=== PATIENT | female | born 1955 | race Caucasian/White ===

== ENCOUNTER → 2018-01-03 | Outpatient (CLI) | payer OTHER ==
[~2018-01-03] MED LIST: ALPR0.5T7 PO; ASPI81CH43 PO; COLE3.75 PO; GLIP-116 PO; HYDR-4683 PO; LEVO500T21 PO; MET25T PO; METF-370 PO; PRAS10TA8 PO
== END | disposition home or self-care (01) ==
LOC: LAB 15:58
PROVIDERS: ATTEND Internal Medicine
DX: E11.65 Type 2 diabetes mellitus with hyperglycemia (principal); I11.0 Hypertensive heart disease with heart failure; I50.9 Heart failure, unspecified; E78.5 Hyperlipidemia, unspecified; Z79.4 Long term (current) use of insulin
CPT/HCPCS: 82043

== ENCOUNTER → 2018-09-23 | Outpatient (CLI) | payer MEDICARE, OTHER ==
[~2018-09-23] MED LIST changes: +AZIL40TA2 PO; +CHOL20007 PO; +HYDR-531 PO; +INSLANTI SC
[2018-09-23 09:35] VITALS: BP 143/60
[2018-09-23 09:55] VITALS: BP 124/59
--- NOTE | 2018-09-23 09:55 | NUR ---
Pre-Op Discharge Summary: See e-MAR for any medications given for this visit. Pre-op orders received and carried out per MD of EKG, LABS and chest xrays. Patient given a copy of EKG with instructions to go to [facility] out patient for further follow up care.
[2018-09-23 12:17] LABS: Basophils # (auto) 0 uL; Basophils % (auto) 0.6 % (0.0-2.0); Eosinophils # (auto) 0.1 uL; Eosinophils % (auto) 1.9 % (0.0-7.0); Hematocrit 35.7 % (36.0-46.0); Hemoglobin 11.9 g/dL (12.2-16.2); Lymphocytes # (auto) 2.1 uL; Lymphocytes % (auto) 34.3 % (10.0-50.0); Mean Corpuscular Hemoglobin 28.9 pg (28.0-32.0); Mean Corpuscular Hgb Conc. 33.2 g/dL (32.0-36.0); Monocytes # (auto) 0.3 uL; Monocytes % (auto) 5.3 % (0.0-12.0); Neutrophils # (auto) 3.6 uL; Neutrophils % (auto) 57.9 % (37.0-80.0); Platelet Count (auto) 196 10^3/uL (140-450); Red Blood Cells 4.11 10^6/uL (4.0-5.20); Red Cell Distribution Width 15.2 % (11.8-14.3); White Blood Cell 6.2 10^3/uL (4.4-10.8)
[2018-09-23 12:22] LABS: BUN/Creatinine Ratio 11.3; Calcium 8.7 mg/dL (8.5-10.1); Potassium 3.9 mmol/L (3.5-5.1)
[2018-09-23 12:29] LABS: INR 0.9 (0.9-1.15); Partial Thromboplastin Time 28.7 sec (23.78-33.04); Prothrombin Time 9.7 sec (9.27-12.13)
== END | disposition home or self-care (01) ==
LOC: Rad HDHVI 09:13
PROVIDERS: ATTEND Internal Medicine Cardiovascular Disease
DX: Z01.818 Encounter for other preprocedural examination (principal); I70.0 Atherosclerosis of aorta; I10 Essential (primary) hypertension; D64.9 Anemia, unspecified; R79.1 Abnormal coagulation profile
CPT/HCPCS: 36415; 71046; 80048; 85025; 85610; 85730; 93005; G0463

== ENCOUNTER 2018-09-26 07:00 | Inpatient (IN) | payer MEDICARE, OTHER | END 2018-09-27 11:15 | disposition home or self-care (01) | LOC: CATH 07:00 → TELE-WESTW 15:22 | PROC: 047L341 Dilation of Left Femoral Artery with Drug-eluting Intraluminal Device, using Drug-Coated Balloon, Percutaneous Approach (ICD-10-PCS; principal; ~2018-09-26) | PROC: B41G1ZZ Fluoroscopy of Left Lower Extremity Arteries using Low Osmolar Contrast (ICD-10-PCS; ~2018-09-26) | PROC: B41F1ZZ Fluoroscopy of Right Lower Extremity Arteries using Low Osmolar Contrast (ICD-10-PCS; ~2018-09-26) | PROC: 047N341 Dilation of Left Popliteal Artery with Drug-eluting Intraluminal Device, using Drug-Coated Balloon, Percutaneous Approach (ICD-10-PCS; ~2018-09-26) | DX: I73.9 Peripheral vascular disease, unspecified (principal); E11.40 Type 2 diabetes mellitus with diabetic neuropathy, unspecified; E11.21 Type 2 diabetes mellitus with diabetic nephropathy; E11.51 Type 2 diabetes mellitus with diabetic peripheral angiopathy without gangrene ==

== ENCOUNTER → 2018-10-11 | Outpatient (CLI) | payer MEDICARE, OTHER ==
[~2018-10-11] MED LIST changes: -COLE3.75 PO; -GLIP-116 PO; -HYDR-4683 PO; -LEVO500T21 PO; -MET25T PO
== END | disposition home or self-care (01) ==
LOC: Rad HDHVI 10:12
PROVIDERS: ATTEND Internal Medicine Cardiovascular Disease
DX: M16.0 Bilateral primary osteoarthritis of hip (principal); M17.11 Unilateral primary osteoarthritis, right knee; Z91.81 History of falling

== ENCOUNTER → 2019-04-07 | Outpatient (CLI) | payer MEDICARE, BC ==
[2019-04-07 12:33] LABS: Urine Blood Negative /uL (Negative); Urine Specific Gravity 1.012 (1.001-1.035)
[2019-04-07 12:46] LABS: Basophils # (auto) 0 uL; Basophils % (auto) 0.7 % (0.0-2.0); Eosinophils # (auto) 0.1 uL; Eosinophils % (auto) 1.1 % (0.0-7.0); Hematocrit 32.8 % (36.0-46.0); Hemoglobin 10.9 g/dL (12.2-16.2); Lymphocytes # (auto) 2.2 uL; Lymphocytes % (auto) 36.3 % (10.0-50.0); Mean Corpuscular Hemoglobin 28.6 pg (28.0-32.0); Mean Corpuscular Hgb Conc. 33.2 g/dL (32.0-36.0); Mean Corpuscular Volume 86.2 fL (80.0-100.0); Monocytes # (auto) 0.4 uL; Monocytes % (auto) 5.9 % (0.0-12.0); Neutrophils # (auto) 3.4 uL; Nucleated Red Blood Cells % 0.1 %; Platelet Count (auto) 217 10^3/uL (140-450); Red Cell Distribution Width 15.3 % (11.8-14.3)
[2019-04-07 13:01] LABS: Potassium 4.3 mmol/L (3.5-5.1)
[2019-04-07 13:22] LABS: Free T4 (Free Thyroxine) 1.07 ng/dL (0.89-1.76)
[2019-04-07 13:31] LABS: Albumin 3.3 g/dL (3.4-5.0); BUN/Creatinine Ratio 13.7; Bilirubin, Total 0.3 mg/dL (0.2-1.0); Total Protein 7.5 g/dL (6.4-8.2)
== END | disposition home or self-care (01) ==
LOC: LAB 09:19
PROVIDERS: ATTEND Internal Medicine Cardiovascular Disease
DX: N39.0 Urinary tract infection, site not specified (principal); E03.9 Hypothyroidism, unspecified; K90.9 Intestinal malabsorption, unspecified; D51.9 Vitamin B12 deficiency anemia, unspecified; I10 Essential (primary) hypertension; E11.9 Type 2 diabetes mellitus without complications; Z79.899 Other long term (current) drug therapy
CPT/HCPCS: 36415; 80053; 80061; 81003; 82306; 82607; 83036; 84439; 84443; 85025; 87086

== ENCOUNTER → 2019-04-29 | Outpatient (CLI) | payer MEDICARE, BC ==
[2019-04-29 16:31] LABS: % Iron Saturation 7.4 % (15-50)
[2019-04-29 16:41] LABS: Folate (Folic Acid) > 24.00 ng/mL (5.38-24)
== END | disposition home or self-care (01) ==
LOC: LAB 10:44
PROVIDERS: ATTEND Internal Medicine Cardiovascular Disease
DX: E61.1 Iron deficiency (principal); R53.83 Other fatigue; D51.9 Vitamin B12 deficiency anemia, unspecified; E55.9 Vitamin D deficiency, unspecified
CPT/HCPCS: 82306; 82607; 82746; 83540; 83550

== ENCOUNTER → 2019-04-30 | Outpatient (CLI) | payer MEDICARE, BC | END | disposition home or self-care (01) | LOC: LAB 09:22 | PROVIDERS: ATTEND Internal Medicine Cardiovascular Disease | DX: E51.9 Thiamine deficiency, unspecified (principal) | CPT/HCPCS: 84425 ==

== ENCOUNTER → 2019-05-29 | Outpatient (CLI) | payer MEDICARE, BC ==
[~2019-05-29] MED LIST changes: +IRON SUCROSE COMPLEX 200 MG in SODIUM CHL 0.9% 100 ML IV SCH
[2019-05-29 13:40] VITALS: BP 155/63
--- NOTE | 2019-05-29 13:40 | NUR ---
IN TO CLINIC FOR SCHEDULED IRON INFUSION. IV PLACED TO LEFT FOREARM 20 GAUGE BY ANN-MARIE GREENBERG. IV IRON ADMINISTERED WITH 5 ML TEST DOSE OVER 12 MINUTES AND TOLERATED WELL. REMAINDER OF INFUSION AT 65ML/HE. TOLERATED WELL. SEE FREQUENT VITALS. AT END OF INFUSION PT REPORTS TENDERNESS AT IV SITE. IV SITE REMAINED BENIGN WITH NO SIGNS OF PHLEBITIS. IV DCD. DISCHARGED TO SELF CARE IN NO DISTRESS OR DISCOMFORT AT TIME OF DISCHARGE. MEDICATION ADMINISTRATION IRON SUCROSE 200 MG IN 100 ML OF 0.9NS START AT 1143/STOP AT 1335
== END | disposition home or self-care (01) ==
LOC: CHF HDHVI 11:05
PROVIDERS: ATTEND Internal Medicine Cardiovascular Disease
DX: D50.9 Iron deficiency anemia, unspecified (principal); R53.83 Other fatigue; D51.9 Vitamin B12 deficiency anemia, unspecified; E55.9 Vitamin D deficiency, unspecified; E03.9 Hypothyroidism, unspecified; E11.9 Type 2 diabetes mellitus without complications
CPT/HCPCS: 96365; 96366; G0463; J1756

== ENCOUNTER → 2019-11-03 | Outpatient (CLI) | payer MEDICARE, BC ==
[~2019-11-03] MED LIST changes: -IRON SUCROSE COMPLEX 200 MG in SODIUM CHL 0.9% 100 ML IV SCH; +READI-CAT 2 (BARIUM SULF)(VANILLA SMOOTHIE) 450ML ONE
[2019-11-03 15:53] LABS: Basophils # (auto) 0 10 ^3/uL (0-0.2); Basophils % (auto) 0.5 % (0.0-2.0); Eosinophils # (auto) 0 10 ^3/uL (0-0.8); Eosinophils % (auto) 0.8 % (0.0-7.0); Hematocrit 33.7 % (36.0-46.0); Hemoglobin 11.5 g/dL (12.2-16.2); Lymphocytes # (auto) 2.2 10 ^3/uL (0.4-5.4); Lymphocytes % (auto) 39.4 % (10.0-50.0); Mean Corpuscular Hemoglobin 29.8 pg (28.0-32.0); Mean Corpuscular Hgb Conc. 34.2 g/dL (32.0-36.0); Monocytes # (auto) 0.3 10 ^3/uL (0-1.3); Monocytes % (auto) 5.5 % (0.0-12.0); Neutrophils % (auto) 53.8 % (37.0-80.0); Nucleated Red Blood Cells % 0.1 %; Platelet Count (auto) 193 10^3/uL (140-450); Red Blood Cells 3.87 10^6/uL (4.0-5.20); Red Cell Distribution Width 13.9 % (11.8-14.3); White Blood Cell 5.6 10^3/uL (4.4-10.8)
[2019-11-03 16:11] LABS: % Iron Saturation 10.8 % (15-50)
== END | disposition home or self-care (01) ==
LOC: Rad HDHVI 15:18
PROVIDERS: ATTEND Internal Medicine Cardiovascular Disease
DX: Z00.00 Encounter for general adult medical examination without abnormal findings (principal); M51.36 Other intervertebral disc degeneration, lumbar region; M48.061 Spinal stenosis, lumbar region without neurogenic claudication; E61.1 Iron deficiency; D64.9 Anemia, unspecified; E11.9 Type 2 diabetes mellitus without complications; I25.10 Atherosclerotic heart disease of native coronary artery without angina pectoris; K86.89 Other specified diseases of pancreas
CPT/HCPCS: 36415; 74176; 83540; 83550; 85025

== ENCOUNTER → 2020-01-28 | Outpatient (CLI) | payer MEDICARE, BC ==
[~2020-01-28] MED LIST changes: -READI-CAT 2 (BARIUM SULF)(VANILLA SMOOTHIE) 450ML ONE
[2020-01-28 16:07] LABS: BUN/Creatinine Ratio 10.8; Calcium 8.7 mg/dL (8.5-10.1); Potassium 4.1 mmol/L (3.5-5.1)
[2020-01-28 16:10] LABS: Basophils # (auto) 0 10 ^3/uL (0-0.2); Basophils % (auto) 0.6 % (0.0-2.0); Eosinophils # (auto) 0.1 10 ^3/uL (0-0.8); Eosinophils % (auto) 0.9 % (0.0-7.0); Hematocrit 37.4 % (36.0-46.0); Hemoglobin 12.3 g/dL (12.2-16.2); Lymphocytes # (auto) 1.9 10 ^3/uL (0.4-5.4); Lymphocytes % (auto) 32.7 % (10.0-50.0); Mean Corpuscular Hemoglobin 29.1 pg (28.0-32.0); Mean Corpuscular Hgb Conc. 32.9 g/dL (32.0-36.0); Mean Corpuscular Volume 88.5 fL (80.0-100.0); Monocytes # (auto) 0.3 10 ^3/uL (0-1.3); Monocytes % (auto) 5.1 % (0.0-12.0); Neutrophils # (auto) 3.5 10 ^3/uL (1.6-8.6); Neutrophils % (auto) 60.7 % (37.0-80.0); Nucleated Red Blood Cells % 0.1 %; Platelet Count (auto) 192 10^3/uL (140-450); Red Blood Cells 4.22 10^6/uL (4.0-5.20); Red Cell Distribution Width 14.5 % (11.8-14.3); White Blood Cell 5.7 10^3/uL (4.4-10.8)
[2020-01-31 19:05] LABS: % Iron Saturation 14.8 % (15-50)
== END | disposition home or self-care (01) ==
LOC: LAB 13:50
PROVIDERS: ATTEND Internal Medicine Cardiovascular Disease
DX: E61.9 Deficiency of nutrient element, unspecified (principal); D64.9 Anemia, unspecified
CPT/HCPCS: 36415; 80048; 82728; 83540; 83550; 85025

== ENCOUNTER → 2020-02-09 | Outpatient (CLI) | payer MEDICARE, BC ==
[~2020-02-09] VITALS: Ht 30.5 cm; Wt 0.5 kg
[~2020-02-09] MED LIST changes: +CYANOCOBALAMIN (B-12) 1000 MCG/1 ML VIAL IM ONE; +CYANOCOBALAMIN (B-12) 1000 MCG/1 ML VIAL ONE; +IRON SUCROSE 20 mg/ml 10ml VIAL IV ONE; +IRON SUCROSE COMPLEX 200 MG in SODIUM CHL 0.9% 100 ML IV SCH
[2020-02-09 11:44] VITALS: BP 142/50
--- NOTE | 2020-02-09 11:44 | NUR ---
CLINIC PT ARRIVED TO THE [facility] CLINIC WITH MD ORDERS FOR IRON IN REGARDING IRON LEVEL 48 ON 01/28/20. A/OX4. AMBULATORY
--- NOTE | 2020-02-09 12:06 | NUR ---
IV insertion IV access obtained, via clean sterile technique by inserting 22 gauge catheter at RFA after 3 attempt(s). IV secured properly. No trauma to site. Patient tolerated procedure well. NOTE 2 UNSUCCESSFUL ATTEMPT BY JEFFERSON GREENBERG INSERTED BY PETRA GREENBERG
--- NOTE | 2020-02-09 13:16 | NUR ---
IV removal IV DC'd with sterile technique, catheter fully intact. Pressure dressing applied to site. Patient tolerated procedure well. Discharged with aftercare instructions per MD. NOTE: REMOVED BY JEFFERSON GREENBERG
[2020-02-09 13:18] VITALS: BP 146/61
--- NOTE | 2020-02-09 13:18 | NUR ---
Discharge Instructions See e-MAR for any mediations given with this visit. Patient education given on disease process. Patient verbalized understanding. Previous labs reviewed. Patient discharged in stable condition with after care instructions and follow up appointment. PT TO HAVE ECHO NOW AND RETURN TO CLINIC ON SUNDAY FOR EVAL AND TX. NOTE VENOFER IV [id number] ADMIN BY PETRA GREENBERG VIT B12 IM ADMIN BY JEFFERSON GREENBERG R DELTOID LOT# [id number] EXP 03/02
== END | disposition home or self-care (01) ==
LOC: CHF HDHVI 11:41
PROVIDERS: ATTEND Internal Medicine Cardiovascular Disease
DX: D64.9 Anemia, unspecified (principal); R53.83 Other fatigue; I50.42 Chronic combined systolic (congestive) and diastolic (congestive) heart failure; E11.9 Type 2 diabetes mellitus without complications
CPT/HCPCS: 93306; 96365; 96372; G0463; J1756; J3420

== ENCOUNTER → 2020-02-20 | Outpatient (CLI) | payer MEDICARE, BC ==
[~2020-02-20] MED LIST changes: -CYANOCOBALAMIN (B-12) 1000 MCG/1 ML VIAL IM ONE; -CYANOCOBALAMIN (B-12) 1000 MCG/1 ML VIAL ONE; -IRON SUCROSE 20 mg/ml 10ml VIAL IV ONE; -IRON SUCROSE COMPLEX 200 MG in SODIUM CHL 0.9% 100 ML IV SCH; +SODIUM FERR GLUC 62.5MG/5ML 125 MG in SODIUM CHL 0.9% 100 ML IV ONE; +SODIUM FERRIC GLUC CPLEX 62.5MG/5ML VIAL IV ONE
[2020-02-20 12:25] VITALS: BP 131/60
[2020-02-20 13:40] VITALS: BP 131/56
== END | disposition home or self-care (01) ==
LOC: CHF HDHVI 12:00
PROVIDERS: ATTEND Internal Medicine Cardiovascular Disease
DX: E61.1 Iron deficiency (principal); I50.42 Chronic combined systolic (congestive) and diastolic (congestive) heart failure; E11.9 Type 2 diabetes mellitus without complications
CPT/HCPCS: 96365; G0463; J2916

== ENCOUNTER → 2020-02-27 | Outpatient (CLI) | payer MEDICARE, BC ==
[2020-02-27 11:30] VITALS: BP 137/67
[2020-02-27 13:20] VITALS: BP 138/62
== END | disposition home or self-care (01) ==
LOC: CHF HDHVI 11:47
PROVIDERS: ATTEND Internal Medicine Cardiovascular Disease
DX: D64.9 Anemia, unspecified (principal); R53.83 Other fatigue; I50.42 Chronic combined systolic (congestive) and diastolic (congestive) heart failure; E11.9 Type 2 diabetes mellitus without complications
CPT/HCPCS: 96365; G0463; J2916

== ENCOUNTER → 2020-03-15 | Outpatient (CLI) | payer MEDICARE, BC ==
[~2020-03-15] VITALS: Ht 175.3 cm; Wt 98.4 kg
[~2020-03-15] MED LIST changes: +ADENOSINE 83 MG in GIVE UN-DILUTED 0 ML IV ONE; +ADENOSINE 90 MG/30 ML INJ IV ONE; -SODIUM FERR GLUC 62.5MG/5ML 125 MG in SODIUM CHL 0.9% 100 ML IV ONE; -SODIUM FERRIC GLUC CPLEX 62.5MG/5ML VIAL IV ONE
== END | disposition home or self-care (01) ==
LOC: Rad HDHVI 13:21
PROVIDERS: ATTEND Internal Medicine Cardiovascular Disease
DX: I25.10 Atherosclerotic heart disease of native coronary artery without angina pectoris (principal); R79.89 Other specified abnormal findings of blood chemistry; E11.9 Type 2 diabetes mellitus without complications; I25.2 Old myocardial infarction; I10 Essential (primary) hypertension; E78.5 Hyperlipidemia, unspecified; Z95.1 Presence of aortocoronary bypass graft
CPT/HCPCS: 78452; 83540; 83550; 93005; 96374; 96375; A9500; J0153

== ENCOUNTER → 2020-11-29 | Outpatient (CLI) | payer MEDICARE, BC ==
[~2020-11-29] MED LIST changes: -ADENOSINE 83 MG in GIVE UN-DILUTED 0 ML IV ONE; -ADENOSINE 90 MG/30 ML INJ IV ONE; +PANT40TA2 PO; +PRAS10TA6 PO
[2020-11-29 10:41] VITALS: BP 144/66
[2020-11-29 11:01] VITALS: BP 146/61
[2020-11-29 12:45] LABS: Basophils # (auto) 0 10 ^3/uL (0-0.2); Basophils % (auto) 0.6 % (0.0-2.0); Eosinophils # (auto) 0.1 10 ^3/uL (0-0.8); Eosinophils % (auto) 1.7 % (0.0-7.0); Hematocrit 36.7 % (36.0-46.0); Hemoglobin 12.7 g/dL (12.2-16.2); Lymphocytes # (auto) 2.1 10 ^3/uL (0.4-5.4); Lymphocytes % (auto) 34.7 % (10.0-50.0); Mean Corpuscular Hemoglobin 30.6 pg (28.0-32.0); Mean Corpuscular Hgb Conc. 34.7 g/dL (32.0-36.0); Mean Corpuscular Volume 88.3 fL (80.0-100.0); Monocytes # (auto) 0.4 10 ^3/uL (0-1.3); Neutrophils # (auto) 3.4 10 ^3/uL (1.6-8.6); Nucleated Red Blood Cells % 0.1 %; Platelet Count (auto) 203 10^3/uL (140-450); Red Blood Cells 4.15 10^6/uL (4.0-5.20); Red Cell Distribution Width 13.2 % (11.8-14.3)
[2020-11-29 12:56] LABS: BUN/Creatinine Ratio 16.9; Calcium 9.1 mg/dL (8.5-10.1); Potassium 4.5 mmol/L (3.5-5.1)
[2020-11-29 13:01] LABS: INR 0.93 (0.9-1.15); Partial Thromboplastin Time 25.4 sec (23.0-31.2)
== END | disposition home or self-care (01) ==
LOC: Rad HDHVI 10:18
PROVIDERS: ATTEND Internal Medicine Cardiovascular Disease
DX: Z01.812 Encounter for preprocedural laboratory examination (principal); I51.7 Cardiomegaly; I70.0 Atherosclerosis of aorta; I50.9 Heart failure, unspecified
CPT/HCPCS: 36415; 71046; 80048; 85025; 85610; 85730; 93005; G0463

== ENCOUNTER 2020-12-02 07:35 | Day surgery (SDC) | payer MEDICARE, BC ==
[~2020-12-02] VITALS: Ht 175.3 cm; Wt 99.8 kg
[~2020-12-02 07:35] MED LIST changes: -ASPI81CH43 PO; -AZIL40TA2 PO; +PRAS10TA18 PO; -PRAS10TA6 PO; -PRAS10TA8 PO
[2020-12-02] MEDS ORDERED: VANCOMYCIN 1GM/250ML 250 ML IV ONE (11:31)
[2020-12-02] MEDS ORDERED: VANCOMYCIN HCL 1000 MG VL ONE (11:45)
[2020-12-02] MEDS ORDERED: MIDAZOLAM HCL 2MG/2ML 2ml VIAL (1mg/ml) ONE (11:46)
[2020-12-02] MEDS ORDERED: fentaNYL CITRATE 100 MCG/2 ML VL ONE (11:46)
[2020-12-02] MEDS ORDERED: LIDOCAINE 2%HCL (LOCAL ANESTH.) INJ 20ML MDV ONE (11:47)
[2020-12-02] MEDS ORDERED: ONDANSETRON HCL 4 MG/2 ML VIAL IV ONE (13:00)
[2020-12-02] MEDS ORDERED: levoFLOXacin 500MG 100 ML IV ONE (13:00)
[2020-12-02] MEDS ORDERED: ACETAMINOPHEN 325 MG TAB PO PRN (13:15)
[2020-12-02] MEDS ORDERED: cloNIDine HCL 0.1 MG TAB PO ONE (14:15)
== END 2020-12-02 16:35 | disposition home or self-care (01) ==
LOC: CATH 07:35
PROVIDERS: ATTEND Internal Medicine Cardiovascular Disease
DX: Z45.018 Encounter for adjustment and management of other part of cardiac pacemaker (principal); R00.1 Bradycardia, unspecified; I25.2 Old myocardial infarction; I73.9 Peripheral vascular disease, unspecified; I25.810 Atherosclerosis of coronary artery bypass graft(s) without angina pectoris; I44.30 Unspecified atrioventricular block; E11.9 Type 2 diabetes mellitus without complications; F32.9 Major depressive disorder, single episode, unspecified; F41.9 Anxiety disorder, unspecified; E66.9 Obesity, unspecified; Z98.890 Other specified postprocedural states; Z20.822 Contact with and (suspected) exposure to COVID-19; Z79.84 Long term (current) use of oral hypoglycemic drugs; Z79.899 Other long term (current) drug therapy; Z87.891 Personal history of nicotine dependence; Z95.1 Presence of aortocoronary bypass graft; Z88.0 Allergy status to penicillin; Z68.32 Body mass index [BMI] 32.0-32.9, adult; Z88.8 Allergy status to other drugs, medicaments and biological substances
CPT/HCPCS: 33208; 71045; 93005; C1785; C1892; C1898; J1956; J2250; J3010; J3370; U0003; 99152; 99153

== ENCOUNTER → 2020-12-03 | Outpatient (CLI) | payer MEDICARE, BC ==
[~2020-12-03] MED LIST changes: -PRAS10TA18 PO; +PRAS10TA6 PO
== END | disposition home or self-care (01) ==
LOC: Rad HDHVI 10:11
PROVIDERS: ATTEND Internal Medicine Cardiovascular Disease
DX: J98.11 Atelectasis (principal); I51.7 Cardiomegaly; M47.814 Spondylosis without myelopathy or radiculopathy, thoracic region; T81.9XXA Unspecified complication of procedure, initial encounter
CPT/HCPCS: 71046

== ENCOUNTER 2021-11-29 10:49 | Day surgery (SDC) | payer MEDICARE ==
[~2021-11-29] VITALS: Ht 175.3 cm; Wt 108.9 kg
[2021-11-29] VITALS (8 sets, daily range): BP systolic 154–178; BP diastolic 69–79
[~2021-11-29 10:49] MED LIST changes: -ALPR0.5T7 PO; -HYDR-531 PO; -METF-370 PO; -PANT40TA2 PO; +PERCOT PO; +PRAS10TA18 PO; -PRAS10TA6 PO
[2021-11-29] MEDS ORDERED: IODIXANOL 320MG/ML 100ML BTL IV ONE (13:28)
[2021-11-29] MEDS ORDERED: SODIUM CHL 0.9% 50 ML ONE ×2 (13:29→15:07)
[2021-11-29] MEDS ORDERED: ANGIOMAX 250 MG VIAL IV ONE ×2 (13:29→15:07)
[2021-11-29] MEDS ORDERED: fentaNYL CITRATE 100 MCG/2 ML VL ONE ×2 (13:29→15:14)
[2021-11-29] MEDS ORDERED: MIDAZOLAM HCL 2MG/2ML 2ml VIAL (1mg/ml) ONE (13:29)
[2021-11-29] MEDS ORDERED: CLOPIDOGREL 300 MG TAB ONE (15:40)
== END 2021-11-29 18:00 | disposition home or self-care (01) ==
LOC: CATH 10:49
PROVIDERS: ATTEND Internal Medicine Cardiovascular Disease
DX: E11.51 Type 2 diabetes mellitus with diabetic peripheral angiopathy without gangrene (principal); I70.203 Unspecified atherosclerosis of native arteries of extremities, bilateral legs; I25.10 Atherosclerotic heart disease of native coronary artery without angina pectoris; I25.2 Old myocardial infarction; E11.319 Type 2 diabetes mellitus with unspecified diabetic retinopathy without macular edema; E11.42 Type 2 diabetes mellitus with diabetic polyneuropathy; I10 Essential (primary) hypertension; E78.00 Pure hypercholesterolemia, unspecified; F32.9 Major depressive disorder, single episode, unspecified; F41.9 Anxiety disorder, unspecified; Z98.49 Cataract extraction status, unspecified eye; Z98.891 History of uterine scar from previous surgery; Z88.0 Allergy status to penicillin; Z88.8 Allergy status to other drugs, medicaments and biological substances; Z95.1 Presence of aortocoronary bypass graft; Z95.5 Presence of coronary angioplasty implant and graft; Z87.891 Personal history of nicotine dependence; Z20.822 Contact with and (suspected) exposure to COVID-19; Z80.6 Family history of leukemia; J44.9 Chronic obstructive pulmonary disease, unspecified
CPT/HCPCS: 37184; 37185; 75716; C1725; C1760; C1761; C1769; C1887; C1894; J0583; J1644; J2250; J3010; Q9967; U0003; 34203; 99152; 99153

== ENCOUNTER → 2022-02-09 | Outpatient (CLI) | payer MEDICARE ==
[~2022-02-09] MED LIST changes: +CLOP75TA28 PO; +MAGN400T40 PO
[2022-02-09 09:34] VITALS: BP 157/70
[2022-02-09 09:55] VITALS: BP 148/69
[2022-02-09 12:37] LABS: Basophils # (auto) 0 10 ^3/uL (0-0.2); Basophils % (auto) 0.6 % (0.0-2.0); Eosinophils # (auto) 0.1 10 ^3/uL (0-0.8); Eosinophils % (auto) 1.2 % (0.0-7.0); Hematocrit 36.9 % (36.0-46.0); Lymphocytes # (auto) 2.3 10 ^3/uL (0.4-5.4); Lymphocytes % (auto) 37.8 % (10.0-50.0); Mean Corpuscular Hemoglobin 28.7 pg (28.0-32.0); Mean Corpuscular Hgb Conc. 32.5 g/dL (32.0-36.0); Mean Corpuscular Volume 88.2 fL (80.0-100.0); Monocytes # (auto) 0.4 10 ^3/uL (0-1.3); Monocytes % (auto) 7.2 % (0.0-12.0); Neutrophils # (auto) 3.2 10 ^3/uL (1.6-8.6); Neutrophils % (auto) 53.2 % (37.0-80.0); Nucleated Red Blood Cells % 0.1 %; Red Blood Cells 4.18 10^6/uL (4.0-5.20); Red Cell Distribution Width 13.4 % (11.8-14.3); White Blood Cell 6.1 10^3/uL (4.4-10.8)
[2022-02-09 12:48] LABS: Potassium 3.8 mmol/L (3.5-5.1)
[2022-02-09 12:57] LABS: BUN/Creatinine Ratio 13.2; Calcium 8.8 mg/dL (8.5-10.1)
[2022-02-09 13:08] LABS: INR 0.95 (0.9-1.15); Partial Thromboplastin Time 27.6 sec (23.6-33.0)
== END | disposition home or self-care (01) ==
LOC: Rad HDHVI 09:16
PROVIDERS: ATTEND Internal Medicine Cardiovascular Disease
DX: H26.493 Other secondary cataract, bilateral (principal); R60.9 Edema, unspecified; J84.9 Interstitial pulmonary disease, unspecified; Z01.812 Encounter for preprocedural laboratory examination; Z79.01 Long term (current) use of anticoagulants
CPT/HCPCS: 36415; 71046; 80048; 85025; 85610; 85730; 93005; G0463

== ENCOUNTER 2022-02-10 12:22 | Observation (INO) | payer MEDICARE ==
[~2022-02-10] VITALS: Ht 175.3 cm; Wt 108.2 kg
[~2022-02-10 12:22] MED LIST changes: -MAGN400T40 PO; -PRAS10TA18 PO
[2022-02-10] MEDS ORDERED: ANGIOMAX 250 MG VIAL IV ONE ×2 (13:59→14:42)
[2022-02-10] MEDS ORDERED: fentaNYL CITRATE 100 MCG/2 ML VL ONE (13:59)
[2022-02-10] MEDS ORDERED: MIDAZOLAM HCL 2MG/2ML 2ml VIAL (1mg/ml) ONE (13:59)
[2022-02-10] MEDS ORDERED: SODIUM CHL 0.9% 50 ML ONE ×2 (13:59→14:42)
[2022-02-10] MEDS ORDERED: CLOPIDOGREL BISULFATE 75 MG TAB ONE (15:00)
[2022-02-10 15:10] VITALS: BP 156/70
[2022-02-10 15:25] VITALS: BP 151/68
[2022-02-10] MEDS ORDERED: MORPHINE SULFATE INJ 2 MG/ml SYRG IV PRN (15:30)
[2022-02-10] MEDS ORDERED: NITROGLYCERIN 0.4 MG SL TAB SL PRN (15:30)
[2022-02-10] MEDS ORDERED: ACETAMINOPHEN 500 MG TAB PO PRN (15:30)
[2022-02-10] MEDS ORDERED: DEXTROSE (50%) 50ML SYRG IV PRN (15:30)
[2022-02-10] MEDS ORDERED: HYDROcodone-ACET 5/325MG TAB PO PRN (15:30)
[2022-02-10 15:40] VITALS: BP 150/71
[2022-02-10 15:55] VITALS: BP 160/70
[2022-02-10] MEDS ORDERED: MAGN400T40 PO (16:49)
[2022-02-10] MEDS: SACUBITRIL-VALSARTAN 24mg/26mg TAB PO SCH ×2 (17:58→22:23)
[2022-02-10] MEDS: ACCU-CHEK COMFORT CURVE STRIP VI SCH ×2 (17:59→22:24)
[2022-02-10] MEDS: InsuLIN REG 1unit/0.01ml Soln (100units/ml) SC SCH ×2 (18:10→22:24)
[2022-02-10] MEDS: PERCOCET PO PRN (18:50)
[2022-02-10 22:00] VITALS: BP 156/66
[2022-02-11] MEDS: PERCOCET PO PRN ×3 (01:10→18:09)
[2022-02-11 05:00] VITALS: BP 137/58
[2022-02-11] MEDS: ACCU-CHEK COMFORT CURVE STRIP VI SCH ×4 (06:18→22:00)
[2022-02-11] MEDS: InsuLIN REG 1unit/0.01ml Soln (100units/ml) SC SCH ×4 (06:18→22:00)
[2022-02-11 08:59] VITALS: BP 150/61
[2022-02-11] MEDS: CLOPIDOGREL BISULFATE 75 MG TAB PO SCH (10:00)
[2022-02-11] MEDS: SACUBITRIL-VALSARTAN 24mg/26mg TAB PO SCH ×2 (10:00→22:00)
[2022-02-11 13:00] VITALS: BP 160/56
[2022-02-11 17:00] VITALS: BP 127/58
[2022-02-11 22:00] VITALS: BP 137/69
[2022-02-12] MEDS: PERCOCET PO PRN (00:10)
[2022-02-12 05:00] VITALS: BP 151/64
[2022-02-12] MEDS: ACCU-CHEK COMFORT CURVE STRIP VI SCH ×2 (06:25→11:19)
[2022-02-12] MEDS: InsuLIN REG 1unit/0.01ml Soln (100units/ml) SC SCH ×2 (06:29→12:10)
[2022-02-12 08:20] VITALS: BP 160/69
[2022-02-12] MEDS: CLOPIDOGREL BISULFATE 75 MG TAB PO SCH (09:34)
[2022-02-12] MEDS: SACUBITRIL-VALSARTAN 24mg/26mg TAB PO SCH (09:34)
[2022-02-12 12:46] VITALS: BP 160/69
== END 2022-02-12 15:33 | disposition home or self-care (01) ==
LOC: CATH 12:22 → TELE-WESTW 15:25 → UNDOADMIN 15:25 → WEST WING 18:15
PROVIDERS: ADMIT Internal Medicine Cardiovascular Disease; ATTEND Internal Medicine Cardiovascular Disease
DX: I25.10 Atherosclerotic heart disease of native coronary artery without angina pectoris (principal); Z20.822 Contact with and (suspected) exposure to COVID-19; I10 Essential (primary) hypertension; E78.5 Hyperlipidemia, unspecified; E11.51 Type 2 diabetes mellitus with diabetic peripheral angiopathy without gangrene; I42.0 Dilated cardiomyopathy; K29.70 Gastritis, unspecified, without bleeding; M19.90 Unspecified osteoarthritis, unspecified site; G89.4 Chronic pain syndrome; I73.9 Peripheral vascular disease, unspecified; M54.12 Radiculopathy, cervical region; M54.16 Radiculopathy, lumbar region; E11.21 Type 2 diabetes mellitus with diabetic nephropathy; E11.40 Type 2 diabetes mellitus with diabetic neuropathy, unspecified; I25.2 Old myocardial infarction; Z79.899 Other long term (current) drug therapy; Z98.890 Other specified postprocedural states
CPT/HCPCS: 37186; 37221; 37226; 82962; 93458; C1725; C1769; C1887; C1894; G0378; J0583; J1644; J1815; J2250; J3010; U0003; 99152; 99153

== ENCOUNTER → 2022-07-18 | Outpatient (CLI) | payer MEDICARE, OTHER ==
[~2022-07-18] MED LIST changes: -INSLANTI SC; +MAGN400T40 PO
== END | disposition home or self-care (01) ==
LOC: Rad HDHVI 16:04
PROVIDERS: ATTEND Internal Medicine Cardiovascular Disease
DX: I34.0 Nonrheumatic mitral (valve) insufficiency (principal); R07.89 Other chest pain; R06.02 Shortness of breath
CPT/HCPCS: 93306

== ENCOUNTER 2022-12-07 18:34 | Emergency (ER) | payer MEDICARE, OTHER ==
[~2022-12-07] VITALS: Ht 175.3 cm; Wt 4.5 kg
[2022-12-07 21:19] VITALS: BP 149/65
[2022-12-07] MEDS ORDERED: NEOMYCIN-BACITRACIN-POLYM UNITDOSE PKG TOP OINT TOP ONE (22:30)
[2022-12-07] MEDS ORDERED: CLIN300C8 PO (22:33)
[2022-12-07] MEDS ORDERED: DOXY-286 PO (22:33)
[2022-12-08] MEDS ORDERED: BACDST PO (18:53)
== END 2022-12-07 23:18 | disposition home or self-care (01) ==
LOC: ER 18:34
DX: S61.551A Open bite of right wrist, initial encounter (principal); I10 Essential (primary) hypertension; Z88.0 Allergy status to penicillin; W54.0XXA Bitten by dog, initial encounter; Y93.89 Activity, other specified; Y92.89 Other specified places as the place of occurrence of the external cause; Y99.8 Other external cause status
CPT/HCPCS: 73110

== ENCOUNTER → 2023-06-11 | Outpatient (CLI) | payer MEDICARE, OTHER ==
[~2023-06-11] VITALS: Ht 175.3 cm; Wt 104.3 kg
[~2023-06-11] MED LIST changes: +ADENOSINE 88 MG in GIVE UN-DILUTED 0 ML IV ONE; +ADENOSINE 90 MG/30 ML INJ IV ONE; +BACDST PO; +CLIN300C70 PO; +DOXY-286 PO
== END | disposition home or self-care (01) ==
LOC: Rad HDHVI 13:28
PROVIDERS: ATTEND Internal Medicine Cardiovascular Disease
DX: I11.0 Hypertensive heart disease with heart failure (principal); I50.23 Acute on chronic systolic (congestive) heart failure; I25.10 Atherosclerotic heart disease of native coronary artery without angina pectoris; R07.9 Chest pain, unspecified; I25.2 Old myocardial infarction; I25.5 Ischemic cardiomyopathy; R06.02 Shortness of breath; E11.21 Type 2 diabetes mellitus with diabetic nephropathy; Z95.0 Presence of cardiac pacemaker; Z95.1 Presence of aortocoronary bypass graft
CPT/HCPCS: 78452; 93005; 96374; 96375; A9500; J0153

== ENCOUNTER 2024-10-26 12:31 | Inpatient (IN) | payer MEDICARE, OTHER, MEDICAID ==
[~2024-10-26] VITALS: Ht 167.6 cm; Wt 102.5 kg
[~2024-10-26 12:31] MED LIST changes: -ADENOSINE 88 MG in GIVE UN-DILUTED 0 ML IV ONE; -ADENOSINE 90 MG/30 ML INJ IV ONE; +CLIN1CAP70 PO; -CLIN300C70 PO
--- NOTE | 2024-10-26 12:49 | ED.PDOC ---
GI ASSESSMENT HPI Comments 69-year-old female who comes in with chief complaint of abdominal pain x1 week. The patient states that she has also had constipation for the past four days and is now having increased amount of pain in the lower abdominal area. She states that the pain is a 9/10. There has been no fever or chills. She also states that she is now having a decreased urine output secondary to the abdominal pain and distention. EN route the patient's Accu-Chek was 312. The patient was also given acetaminophen 1 g IV piggyback for the abdominal pain. The patient also states that the pain is radiating towards the back. Chief Complaint: Abdominal Pain Time Seen by MD: 12:35 Primary Care Provider: NAVEEN Reviewed Notes: Nurses Notes, Medications, Allergies (NKDA ) Allergies: Coded Allergies: Penicillins (Verified Allergy, Unknown, 12/09/17) Statins (Verified Allergy, Unknown, 12/10/17) Home Meds Active Scripts Sulfamethoxazole W/Trimethopri (Bactrim Ds Tablet) 1 Tab Tb, 1 TAB PO BID for 7 Days, #14 TAB Prov:BRIAN WHITFIELD 12/08/22 Doxycycline Hyclate (DOXYCYCLINE HYCLATE) 100 Mg Tab, 1 TAB PO BID for 7 Days, #14 TAB Prov:BRIAN WHITFIELD 12/07/22 Clindamycin Hcl (Clindamycin Hcl) 300 Mg Cap, 1 CAP PO TID for 7 Days, #21 CAP Prov:BRIAN WHITFEILD 12/07/22 Reported Medications Magnesium Oxide (MAGNESIUM OXIDE) 400 Mg Tab, 1 TAB PO DAILY, #30 TAB 5 Refills 02/10/22 Oxycodone W/ Acetaminophen (Percocet 5/325MG) 1 Tab Tb, 1.5 TAB PO QID for pain 02/09/22 Clopidogrel Bisulfate (Plavix) 75 Mg Tab, 75 MG PO HS for blood thinner, TAB 02/09/22 Cholecalciferol (VITAMIN D3) 2,000 Unit Tab, 1 TAB PO DAILY 09/23/18 Information Source: Patient, Emergency Med Personnel Mode of Arrival: EMS Timing: Days (Symptoms started one week ago) Duration: Since onset Prehospital treatment: None Quality: Aching, Cramping Vomitus: None Stool: Other (Constipation) Severity: Moderate Recent: None Recent Hx of: None Pain Location: Diffuse Modifying Factors: Nothing Associated sign and symptoms: Constipation, Abdominal Pain Past Medical History PAST MEDICAL HISTORY: CAD, CHF, DM, High Lipids, HTN, [place] Past Medical History (Other): Neuropathy Surgical History: BTL, CABG, Cholecystectomy, , Pacemaker, PTCA FREIGHT AGENT History: Denies all FREIGHT AGENT Hx Family History Family History: Unknown Social History Smoker: Non-Smoker Alcohol: Denies ETOH Use Drugs: Denies Drug Use Lives In: Home Constitutional: denies: chills, diaphoresis, fatigue, fever, malaise, sweats, weakness, others EENTM: denies: blurred vision, double vision, ear bleeding, ear discharge, ear drainage, ear pain, ear ringing, eye pain, eye redness, hearing loss, mouth pain, mouth swelling, nasal discharge, nose bleeding, nose congestion, nose pain, photophobia, tearing, throat pain, throat swelling, voice changes, others Respiratory: denies: cough, hemoptysis, orthopnea, SOB at rest, shortness of breath, SOB with excertion, stridor, wheezing, others Cardiovascular: denies: chest pain, dizzy spells, diaphoresis, Dyspnea on exertion, edema, irregular heart beat, left arm pain, lightheadedness, palpitations, PND, syncope, others Gastrointestinal: reports: abdominal pain, constipated; denies: abdomen distended, blood streaked bowels, diarrhea, dysphagia, difficulty swallowing, hematemesis, melena, nausea, poor appetite, poor fluid intake, rectal bleeding, rectal pain, vomiting, others Genitourinary: reports: others (Decreased urine output); denies: abnormal vagina bleeding, burning, dyspareunia, dysuria, flank pain, frequency, hematuria, incontinence, pain, , vagina discharge, urgency Neurological: denies: dizziness, fainting, headache, left sided numbness, left sided weakness, numbness, paresthesia, pre-existing deficit, right sided numbness, right sided weakness, seizure, speech problems, tingling, tremors, weakness, others Musculoskeletal: reports: back pain; denies: gout, joint pain, joint swelling, muscle pain, muscle stiffness, neck pain, others Integumetry: denies: bruises, change in color, change in hair/nails, dryness, laceration, lesions, lumps, rash, wounds, others Allergic/Immunocompromised: denies: Difficulty Healing, Frequent Infections, Hives, Itching, others Hematologic/Lymphatic: denies: anemia, blood clots, easy bleeding, easy bruising, swollen glands, others Endocrine: denies: excessive hunger, excessive sweating, excessive thirst, excessive urination, flushing, intolerance to cold, intolerance to heat, unexplained weight gain, unexplained weight loss, others Psychiatric: denies: anxiety, bipolar disorder, depression, hopeless, panic disorder, schizophrenia, sleepless, suicidal, others Physical Exam General Appearance: Moderate Distress, Obese HEENT: Normal ENT Inspection, Pharynx Normal, TMs Normal Neck: Full Range of Motion, Non-Tender, Normal, Normal Inspection Respiratory: Chest Non-Tender, Lungs Clear, No Accessory Muscle Use, No Respiratory Distress, Normal Breath Sounds Cardiovascular: No Edema, No JVD, No Murmur, No Gallop, Normal Peripheral Pulses, Regular Rate/Rhythm Breast Exam: Deferred Gastrointestinal: Diffuse, No Organomegaly, No Pulsatile Mass, Normal Bowel Sounds, Soft, Tenderness Genitalia: Deferred Pelvic: Deferred Rectal: Deferred Extremities: No calf tenderness, Normal capillary refill, Normal inspection, Normal range of motion, Non-tender, No pedal edema Musculoskeletal : Apperance: Normal Neurologic: Alert, software test technician II-XII nml as Tested, Motor Weakness, Normal Affect, Normal Mood, No Sensory Deficits Cerebellar Function: Normal Reflexes: Normal Skin: Dry, Normal Color, Warm Lymphatic: No Adenopathy EKG EKG : Pulse Rate (adult): 79 [place]: Normal Block: RBBB ST: Nonsp Was a procedure done? Was a procedure done?: No GI differential Dx Differential Diagnosis: Appendicitis, Cholangitis, Cholecystitis, Gastritis/PUD, Gastroenteritis, Inflammatory BD, Pancreatitis, UTI, Electrolyte Imbalance X-Ray, Labs, Meds, VS Vital Signs Date Time Temp Pulse Resp B/P (MAP) Pulse Ox O2 Delivery O2 Flow Rate FiO2 10/26/24 15:50 98.2 62 12 160/62 (94) 95 98.2 10/26/24 15:10 75 16 Room Air* 0 21 10/26/24 15:10 97.9 75 16 134/72 (92) 97 97.9 10/26/24 12:55 79 10/26/24 12:53 79 10/26/24 12:44 98.5 90 20 180/69 (106) 97 98.5 Lab Test 10/26/24 12:57 Range/Units White Blood Count 8.4 4.4-10.8 10^3/uL Red Blood Count 4.09 4.0-5.20 10^6/uL Hemoglobin 12.1 L 12.2-16.2 g/dL Hematocrit 36.1 36.0-46.0 % Mean Corpuscular Volume 88.2 80.0-100.0 fL Mean Corpuscular Hemoglobin 29.6 28.0-32.0 pg Mean Corpuscular Hemoglobin Concent 33.5 32.0-36.0 g/dL Red Cell Distribution Width 14.0 11.8-14.3 % Platelet Count 197 140-450 10^3/uL Mean Platelet Volume 9.0 6.9-10.8 fL Neutrophils (%) (Auto) 82.2 H 37.0-80.0 % Lymphocytes (%) (Auto) 13.1 10.0-50.0 % Monocytes (%) (Auto) 4.3 0.0-12.0 % Eosinophils (%) (Auto) 0.1 0.0-7.0 % Basophils (%) (Auto) 0.3 0.0-2.0 % Neutrophils # (Auto) 6.9 1.6-8.6 10 ^3/uL Lymphocytes # (Auto) 1.1 0.4-5.4 10 ^3/uL Monocytes # (Auto) 0.4 0-1.3 10 ^3/uL Eosinophils # (Auto) 0 0-0.8 10 ^3/uL Basophils # (Auto) 0 0-0.2 10 ^3/uL Nucleated Red Blood Cells 0.0 % Sodium Level 137 136-145 mmol/L Potassium Level 4.1 3.5-5.1 mmol/L Chloride Level 104 98-107 mmol/L Carbon Dioxide Level 25 20-31 mmol/L Anion Gap 8 5-15 Blood Urea Nitrogen 10 9-23 mg/dL Creatinine 0.84 0.550-1.02 mg/dL Glomerular Filtration Rate Calc 74 >90 mL/min BUN/Creatinine Ratio 11.9 10.0-20.0 Serum Glucose 276 H 74-106 mg/dL Calcium Level 10.1 8.7-10.4 mg/dL Total Bilirubin 0.6 0.2-1.0 mg/dL Aspartate Amino Transferase (AST) 13 13-40 U/L Alanine Aminotransferase (ALT) 13 7-40 U/L Alkaline Phosphatase 74 46-116 U/L Total Protein 6.8 5.7-8.2 g/dL Albumin 4.4 3.2-4.8 g/dL Lipase 17 12-53 U/L Current Medications Medications (Trade) Dose Ordered Sig/Luz Route Start Time Stop Time Status Last Admin Lactulose 30 ml ONCE ONCE PO 10/26/24 15:45 10/26/24 15:46 DC 10/26/24 17:31 The patient's IV Hep-Lock was established A Sams catheter is being placed at this time PROCEDURE(s): ABPL - CT AB PEL WO CON-NO ORAL OR IV IMPRESSION: Moderate volume diffuse colonic stool. Large volume stool in the rectum. Radiation optimization: All CT scans at this facility use at least one of these dose optimization techniques: automated exposure control mA and/or kV adjustment per patient size (includes targeted exams where dose is matched to clinical indication) or iterative reconstruction. Hep-Lock was established The patient was given lactulose 30 mg p.o. here in the emergency department's The lipase and liver enzymes are negative The patient's CBC and chemistry panel are within normal limits The patient was being admitted at this time. Images Reviewed?: Images reviewed and evaluated by me Time of 1ST Reevaluation: 12:55 Reevaluation 1ST: Unchanged Patient Education/Counseling: Diagnosis, Treatment, Prognosis Family Education/Counseling: No Family Present Departure 1 Departure Time of Disposition: 18:13 Impression: Primary Impression: Acute abdominal pain Additional Impression: Fecal impaction Disposition: 09 ADMITTED INPATIENT Admit to: Med Surg Condition: Fair Critical Care Note Critical Care Time?: No Stability Stability form required: Yes Unstable for transfer: ED Physician Assesment (Clinical assesment) Heart Score Heart Score: Heart Score Response (Comments) Value History N/A 0 EKG N/A 0 Age N/A 0 Risk Factors N/A 0 Troponin N/A 0 Total 0 I personally scribed for DENAE DUKES MD ([email or web address]) on 10/26/24 at 14:45. Electronically submitted by Kelley Emerson ([email or web address]). DENAE DUKES MD Oct 26, 2024 12:49
[2024-10-26 13:14] LABS: Basophils # (auto) 0 10 ^3/uL (0-0.2); Basophils % (auto) 0.3 % (0.0-2.0); Eosinophils # (auto) 0 10 ^3/uL (0-0.8); Eosinophils % (auto) 0.1 % (0.0-7.0); Hematocrit 36.1 % (36.0-46.0); Hemoglobin 12.1 g/dL (12.2-16.2); Lymphocytes # (auto) 1.1 10 ^3/uL (0.4-5.4); Lymphocytes % (auto) 13.1 % (10.0-50.0); Mean Corpuscular Hemoglobin 29.6 pg (28.0-32.0); Mean Corpuscular Hgb Conc. 33.5 g/dL (32.0-36.0); Mean Corpuscular Volume 88.2 fL (80.0-100.0); Monocytes # (auto) 0.4 10 ^3/uL (0-1.3); Monocytes % (auto) 4.3 % (0.0-12.0); Neutrophils # (auto) 6.9 10 ^3/uL (1.6-8.6); Neutrophils % (auto) 82.2 % (37.0-80.0); Platelet Count (auto) 197 10^3/uL (140-450); Red Blood Cells 4.09 10^6/uL (4.0-5.20); White Blood Cell 8.4 10^3/uL (4.4-10.8)
[2024-10-26 13:37] LABS: Alanine Aminotransferase 13 U/L (7-40); Albumin 4.4 g/dL (3.2-4.8); Alkaline Phosphatase 74 U/L (46-116); Anion Gap 8 (5-15); Aspartate Aminotransferase 13 U/L (13-40); BUN/Creatinine Ratio 11.9 (10.0-20.0); Blood Urea Nitrogen 10 mg/dL (9-23); Calcium 10.1 mg/dL (8.7-10.4); Carbon Dioxide 25 mmol/L (20-31); Chloride 104 mmol/L (98-107); Lipase 17 U/L (12-53); Potassium 4.1 mmol/L (3.5-5.1); Sodium 137 mmol/L (136-145); Total Protein 6.8 g/dL (5.7-8.2)
[2024-10-26 13:38] LABS: Bilirubin, Total 0.6 mg/dL (0.2-1.0)
[2024-10-26 13:45] LABS: Glucose 276 mg/dL (74-106)
--- NOTE | 2024-10-26 14:12 | DVH ---
Exam: CT CT AB PEL WO CON-NO ORAL OR IV History: pain Comparison Study: [facility] on DOS: 07/18/22, [facility] on DOS: 11/24/21 Technique: Multidetector spiral CT of the abdomen was performed from lung bases to pubic symphysis. I maging was performed without IV contrast. Axial, coronal and sagittal multiplanar reformats were obta ined from the axial data set by the technologist. Radiation Dose : 1. Abdomen/Pelvis: CTDIvol 23.7 mGy, DLP 1339.64 mGy*cm. Findings: Evaluation of solid organs is limited due to lack of intravenous contrast use. Lung Bases: No acute or significant lung base finding. Normal heart size. No pleural or pericardial effusion. Liver: Hepatomegaly. Gallbladder and Biliary Tree: Gallbladder is surgically absent. Spleen: Unremarkable Pancreas: The pancreas is grossly normal in appearance. Adrenal Glands: Unremarkable Kidneys: Kidneys are grossly normal without calculi or hydronephrosis. Bladder: Grossly unremarkable for degree of distention. Bowel: The stomach is grossly normal in appearance. Moderate volume diffuse colonic stool. The append ix is not visualized; however, no secondary findings of acute appendicitis identified. Ascites: Absent Lymphadenopathy: No mesenteric, retroperitoneal or periportal lymphadenopathy. Abdominal Wall and Mesentery: Unremarkable. Vasculature: The visualized abdominal aorta is normal in size and caliber. There is extensive athero sclerotic calcification of the aorta and its branches. Evaluation of abdominal and pelvic vessels is limited due to lack of intravenous contrast. Pelvic Organs: Leiomyomatous uterus. Musculoskeletal: No aggressive focal bony lesions, acute fractures or dislocation. Multilevel degener ative changes of the spine. IMPRESSION: Moderate volume diffuse colonic stool. Large volume stool in the rectum. Radiation optimization: All CT scans at this facility use at least one of these dose optimization mark hniques: automated exposure control mA and/or kV adjustment per patient size (includes targeted exam s where dose is matched to clinical indication) or iterative reconstruction.
[2024-10-26 15:10] VITALS: PULSE 75; RESP 16
--- NOTE | 2024-10-26 16:03 | DVHHP2 ---
Admitting Diagnosis: Abdominal pain History of Present Illness 69-year-old female who comes in with chief complaint of abdominal pain x1 week. The patient states that she has also had constipation for the past four days and is now having increased amount of pain in the lower abdominal area. She states that the pain is a 9/10. There has been no fever or chills. She also states that she is now having a decreased urine output secondary to the abdominal pain and distention. EN route the patient's Accu-Chek was 312. The patient was also given acetaminophen 1 g IV piggyback for the abdominal pain. The patient also states that the pain is radiating towards the back. PAST MEDICAL HISTORY: CAD, CHF, DM, High Lipids, HTN, [place] Past Medical History (Other): Neuropathy Surgical History: BTL, CABG, Cholecystectomy, , Pacemaker, PTCA CREDIT CARD CLERK History: Denies all CREDIT CARD CLERK Hx Family History Family History: Unknown Social History Smoker: Non-Smoker Alcohol: Denies ETOH Use Drugs: Denies Drug Use Lives In: Home Patient Family History: Leukemia Allergies: Coded Allergies: Penicillins (Verified Allergy, Unknown, 12/09/17) Statins (Verified Allergy, Unknown, 12/10/17) Home Meds Active Scripts Sulfamethoxazole W/Trimethopri (Bactrim Ds Tablet) 1 Tab Tb, 1 TAB PO BID for 7 Days, #14 TAB Prov:BRIAN WHITFIELD 12/08/22 Doxycycline Hyclate (DOXYCYCLINE HYCLATE) 100 Mg Tab, 1 TAB PO BID for 7 Days, #14 TAB Prov:BRIAN WHITFIELD 12/07/22 Clindamycin Hcl (Clindamycin Hcl) 300 Mg Cap, 1 CAP PO TID for 7 Days, #21 CAP Prov:BRIAN WHITFIELD 12/07/22 Reported Medications Magnesium Oxide (MAGNESIUM OXIDE) 400 Mg Tab, 1 TAB PO DAILY, #30 TAB 5 Refills 02/10/22 Oxycodone W/ Acetaminophen (Percocet 5/325MG) 1 Tab Tb, 1.5 TAB PO QID for pain 02/09/22 Clopidogrel Bisulfate (Plavix) 75 Mg Tab, 75 MG PO HS for blood thinner, TAB 02/09/22 Cholecalciferol (VITAMIN D3) 2,000 Unit Tab, 1 TAB PO DAILY 09/23/18 Current Medications Current Medications Medications (Trade) Dose Ordered Sig/Luz Route PRN Reason Start Time Stop Time Status Last Admin Sodium Chloride (Saline Lock Ns) 10 ml Q8HR IV 10/26/24 22:00 UNV Acetaminophen (Tylenol Tablet) 650 mg Q6HP PRN PO PAIN SCALE 1-3 OR TEMP>100.4 10/26/24 16:00 UNV Ondansetron HCl (Zofran) 4 mg Q4HP PRN IV NAUSEA / VOMITING 10/26/24 16:00 UNV Sennosides (Senokot Tablet) 17.2 mg DAILY PO 10/26/24 16:00 UNV Docusate Sodium (Colace Capsule) 200 mg DAILY PO 10/26/24 16:00 UNV Polyethylene Glycol (Miralax 17GM Powder) 17 gm DAILY PO 10/26/24 16:00 UNV Sodium Biphosphate/ Sodium Phosphate 133 ml DAILY PRN [place] constipation for impaction 10/26/24 16:00 UNV Vital Signs Vital Signs Date Time Temp Pulse Resp B/P (MAP) Pulse Ox O2 Delivery O2 Flow Rate FiO2 10/26/24 12:55 79 10/26/24 12:44 98.5 20 180/69 (106) 97 98.5 Physical Exam Generally-69 years old woman, overweight, sitting on chair. Moderate distress HEENT-atraumatic normocephalic Heart-regular rate and rhythm Lungs clear to auscultate bilaterally Abdomen soft, tender to palpate left lower quadrant, nondistended Musculoskeletal-no edema cyanosis Neuro-AO x3, no focal deficit Results Labs Test 10/26/24 12:57 Range/Units White Blood Count 8.4 4.4-10.8 10^3/uL Red Blood Count 4.09 4.0-5.20 10^6/uL Hemoglobin 12.1 L 12.2-16.2 g/dL Hematocrit 36.1 36.0-46.0 % Mean Corpuscular Volume 88.2 80.0-100.0 fL Mean Corpuscular Hemoglobin 29.6 28.0-32.0 pg Mean Corpuscular Hemoglobin Concent 33.5 32.0-36.0 g/dL Red Cell Distribution Width 14.0 11.8-14.3 % Platelet Count 197 140-450 10^3/uL Mean Platelet Volume 9.0 6.9-10.8 fL Neutrophils (%) (Auto) 82.2 H 37.0-80.0 % Lymphocytes (%) (Auto) 13.1 10.0-50.0 % Monocytes (%) (Auto) 4.3 0.0-12.0 % Eosinophils (%) (Auto) 0.1 0.0-7.0 % Basophils (%) (Auto) 0.3 0.0-2.0 % Neutrophils # (Auto) 6.9 1.6-8.6 10 ^3/uL Lymphocytes # (Auto) 1.1 0.4-5.4 10 ^3/uL Monocytes # (Auto) 0.4 0-1.3 10 ^3/uL Eosinophils # (Auto) 0 0-0.8 10 ^3/uL Basophils # (Auto) 0 0-0.2 10 ^3/uL Nucleated Red Blood Cells 0.0 % Sodium Level 137 136-145 mmol/L Potassium Level 4.1 3.5-5.1 mmol/L Chloride Level 104 98-107 mmol/L Carbon Dioxide Level 25 20-31 mmol/L Anion Gap 8 5-15 Blood Urea Nitrogen 10 9-23 mg/dL Creatinine 0.84 0.550-1.02 mg/dL Glomerular Filtration Rate Calc 74 >90 mL/min BUN/Creatinine Ratio 11.9 10.0-20.0 Serum Glucose 276 H 74-106 mg/dL Calcium Level 10.1 8.7-10.4 mg/dL Total Bilirubin 0.6 0.2-1.0 mg/dL Aspartate Amino Transferase (AST) 13 13-40 U/L Alanine Aminotransferase (ALT) 13 7-40 U/L Alkaline Phosphatase 74 46-116 U/L Total Protein 6.8 5.7-8.2 g/dL Albumin 4.4 3.2-4.8 g/dL Lipase 17 12-53 U/L Primary Diagnosis Moderate constipation due to opiate use Suspect fecal impaction rectal Plan Patient states similar episodes but never this severe CT scan shows moderate constipation, large fecal rectal Start senna, Colace, MiraLax Fleet enema as needed daily Pain control Bowel regimen Recommended to hold opiate use. Follow up with the pain management for alternative methods for pain control Tylenol volume patient IV fluids resume home meds Full code Lovenox for DVT prophylaxis PPI for GI prophylaxis Clear liquid. Advance as tolerated Plan discussed with: Patient Problems List: (1) Constipation due to opioid therapy (2) Fecal impaction in rectum Date of Service: Oct 26, 2024 Billing Provider: ARTHUR SCHUMACHER MD Common Visit Codes: [id number] INP/OBS CARE (MOD) ARTHUR SCHUMACHER MD Oct 26, 2024 16:03
[2024-10-26] MEDS: DOCUSATE SOD 100 MG CAP PO SCH (17:31)
[2024-10-26] MEDS: LACTULOSE 20Gm/30ML SOLN PO ONE (17:31)
[2024-10-26] MEDS: SENNA 8.6 MG TAB PO SCH (17:31)
[2024-10-26] MEDS: POLYETHYLENE GLYCOL 17 GM PWDR PO SCH (17:31)
[2024-10-26 17:41] VITALS: PULSE 65; RESP 12; O2SAT 95
[2024-10-26 18:26] VITALS: BP 155/69; PULSE 65; RESP 20; TEMP 98.2; O2SAT 97
[2024-10-26 19:13] LABS: Urine Bacteria FEW /hpf (None Seen); Urine Blood Negative /uL (Negative); Urine Clarity Turbid (Clear); Urine Color Light-Yellow (Yellow); Urine Protein, UAD Negative (Negative); Urine Specific Gravity 1.009 (1.001-1.035); Urine Squamous Epithelial Cell FEW /hpf (<5); Urine Urobilinogen Normal (Negative); Urine WBC 108 /HPF (0-5); Urine pH 5.5 (5.0-9.0)
[2024-10-26 20:00] VITALS: PULSE 65; RESP 19; O2SAT 97
[2024-10-26] MEDS: ONDANSETRON HCL 4 MG/2 ML VIAL IV PRN (20:54)
[2024-10-26] MEDS: CLOPIDOGREL BISULFATE 75 MG TAB PO SCH (20:55)
[2024-10-26] MEDS: SODIUM CHLOR 0.9% PF (SALINE LOCK) 10ML VIAL/SYR IV SCH (20:55)
[2024-10-26 21:00] VITALS: BP 151/72; PULSE 68; RESP 19; TEMP 98.3; O2SAT 97
[2024-10-26] MEDS: FLEET MINERAL OIL ENEMA 133 ML PR PRN (22:23)
[2024-10-26] MEDS: ACETAMINOPHEN 325 MG TAB PO PRN (22:33)
[2024-10-27] VITALS (7 sets, daily range): BP systolic 116–160; BP diastolic 54–66; PULSE 65–70; RESP 17–18; TEMP 97.8–99; O2SAT 94–97
[2024-10-27 07:25] LABS: Alanine Aminotransferase 10 U/L (7-40); Alkaline Phosphatase 61 U/L (46-116); Anion Gap 11 (5-15); BUN/Creatinine Ratio 7.2 (10.0-20.0); Calcium 9.7 mg/dL (8.7-10.4); Carbon Dioxide 23 mmol/L (20-31); Magnesium 1.7 mg/dL (1.6-2.6); Sodium 144 mmol/L (136-145); Total Protein 6.2 g/dL (5.7-8.2)
[2024-10-27 07:26] LABS: Albumin 3.8 g/dL (3.2-4.8); Blood Urea Nitrogen 6 mg/dL (9-23); Chloride 110 mmol/L (98-107); Glucose 142 mg/dL (74-106); Potassium 3.3 mmol/L (3.5-5.1)
[2024-10-27 07:27] LABS: Bilirubin, Total 0.7 mg/dL (0.2-1.0)
[2024-10-27 07:28] LABS: Aspartate Aminotransferase 11 U/L (13-40)
[2024-10-27 07:51] LABS: Basophils # (auto) 0 10 ^3/uL (0-0.2); Basophils % (auto) 0.5 % (0.0-2.0); Eosinophils # (auto) 0.1 10 ^3/uL (0-0.8); Hematocrit 31.5 % (36.0-46.0); Hemoglobin 10.9 g/dL (12.2-16.2); Lymphocytes # (auto) 2.3 10 ^3/uL (0.4-5.4); Lymphocytes % (auto) 35.9 % (10.0-50.0); Mean Corpuscular Hemoglobin 30.4 pg (28.0-32.0); Mean Corpuscular Hgb Conc. 34.5 g/dL (32.0-36.0); Mean Corpuscular Volume 88.1 fL (80.0-100.0); Monocytes # (auto) 0.5 10 ^3/uL (0-1.3); Monocytes % (auto) 7.1 % (0.0-12.0); Neutrophils # (auto) 3.5 10 ^3/uL (1.6-8.6); Neutrophils % (auto) 55.5 % (37.0-80.0); Platelet Count (auto) 183 10^3/uL (140-450); Red Blood Cells 3.58 10^6/uL (4.0-5.20); White Blood Cell 6.4 10^3/uL (4.4-10.8)
[2024-10-27] MEDS: MAGNESIUM OXIDE 400 MG TAB PO SCH (09:40)
[2024-10-27] MEDS: ENOXAPARIN SOD 40 MG/0.4 ML SYRINGE SC SCH (09:41)
[2024-10-27] MEDS: CHOLECALCIFEROL (VITD3) 1,000UNIT=25mCg TAB PO SCH (09:41)
--- NOTE | 2024-10-27 14:28 | DVHPN2 ---
Progress Note Date Seen: Oct 27, 2024 Medical Necessity Reason Pt with a Central, PICC or Fol: No Subjective Patient reports: No new complaints Review of Systems: HEENT:Normal, CVS:Normal, RESPIRATORY:Normal, GI:Normal, :Normal, MSK:Normal, NEURO:Normal Objective vital signs Vital Sign Date Time Temp Pulse Resp B/P (MAP) Pulse Ox O2 Delivery O2 Flow Rate FiO2 10/27/24 13:00 98.8 66 17 116/54 (74) 94 98.8 10/26/24 20:00 Room Air* 0 21 Total Intake and Output 10/26/24 10/26/24 10/27/24 15:00 23:00 07:00 Intake Total 650 ml Balance 650 ml medications Current Medications Medications Dose Ordered Sig/Luz Route Start Time Stop Time Status Last Admin Dose Admin Sodium Chloride 10 ml Q8HR IV 10/26/24 22:00 10/27/24 05:55 10 ML Acetaminophen 650 mg Q6HP PRN PO 10/26/24 16:00 10/26/24 22:33 650 MG Ondansetron HCl 4 mg Q4HP PRN IV 10/26/24 16:00 10/27/24 09:45 4 MG Sennosides 17.2 mg DAILY PO 10/26/24 16:00 10/26/24 17:31 17.2 MG Docusate Sodium 200 mg DAILY PO 10/26/24 16:00 10/27/24 09:41 200 MG Polyethylene Glycol 17 gm DAILY PO 10/26/24 16:00 10/26/24 17:31 17 GM Sodium Biphosphate/ Sodium Phosphate 133 ml DAILY PRN MS 10/26/24 16:00 10/26/24 22:23 133 ML Clopidogrel Bisulfate 75 mg HS PO 10/26/24 22:00 10/26/24 20:55 75 MG Cholecalciferol 2,000 unit DAILY PO 10/27/24 10:00 10/27/24 09:41 2,000 UNIT Magnesium Oxide 400 mg DAILY PO 10/27/24 10:00 10/27/24 09:40 400 MG Enoxaparin Sodium 40 mg DAILY SC 10/27/24 10:00 10/27/24 09:41 40 MG Examination: GENERAL:Normal, HEENT:Normal, NECK:Normal, LUNGS:Normal, CVS:Normal, ABDOMEN:Normal, MSK:Normal, MSK:Abnormal (edema+), SKIN:Normal, NEURO:Normal, :Normal laboratory and microbiology Laboratory Tests 10/27/24 05:38 Test 10/27/24 05:38 Range/Units Serum Glucose 142 H 74-106 mg/dL Problem List/Assessment/Plan Problem List/Assessment/Plan #1 abd pain with fecal impaction: improved #2 dm: ssi #3 cad s/p cabg/stents #4 s/p pacer #5 obesity #6 chronic systolic/diastolic heart failure: xray chest advance care planning- full code- time spent 18 mins Plan discussed with: Patient My Orders My Orders Orders - CHLOE PITTS MD Procedure Category Date Status Time Full Liq Diet DIET 10/27/24 Transmitted Dinner Consistent DIET 10/27/24 Verified Carb(Ccho)Diabetes Dinner Glucose Blood PHA 10/27/24 Verified (Accu-Chek Comfort 17:00 Mild Sliding Scale PHA 10/27/24 Verified 17:00 Dextrose 50% Syringe PHA 10/27/24 Verified 14:30 Potassium Er Tablet PHA 10/27/24 Verified (Klor-Con Tablet) 14:30 * Cardiology Consult CONS 10/27/24 Verified 14:22 Ceftriaxone Ivpb PHA 10/28/24 Verified Rocephin 09:00 Ceftriaxone Ivpb PHA 10/27/24 Verified Rocephin 14:30 Urine Bacterial XIAO 10/27/24 Verified Culture 14:22 Basic Metabolic Panel LAB 10/28/24 Verified 06:00 Complete Blood Count LAB 10/28/24 Verified 06:00 Date of Service: Oct 27, 2024 Billing Provider: CHLOE PITTS MD Common Visit Codes: [id number] INP/OBS CARE(HIGH) Secondary Visit Codes: [id number] CARE PLAN 30 MINUTES CHLOE PITTS MD Oct 27, 2024 14:28
[2024-10-27] MEDS ORDERED: cefTRIAXone 1GM/50ML D5W 50 ML IV ONE (14:30)
[2024-10-27] MEDS ORDERED: DEXTROSE (50%) 50ML SYRG IV PRN (14:30)
[2024-10-27] MEDS: POTASSIUM CHL 20 Meq TABLET PO ONE ×2 (14:30→16:33)
[2024-10-27] MEDS ORDERED: POTASSIUM CHL 20 Meq TABLET PO ONE (14:30)
--- NOTE | 2024-10-27 14:39 | ECG ---
Test Date: 2024-10-26 Test Time: 12:53:41 Pat Name: JUAN ALVARADO Department: ER Room: 0290 A Gender: F Qa Automation Engineer: FRANCISCO J : 1955 Requested By: DENAE DUKES Order Number: [id number] Reading MD: Marco Antonio Alarcon Measurements Intervals [place] Rate: 79 P: 29 MS: 182 QRS: 64 QRSD: 143 T: 22 QT: 414 QTc: 475 Interpretive Statements Sinus rhythm Right bundle branch block Electronically Signed On 10-29-2024 22:31:26 PDT by Marco Antonio Alarcon Please click the below link to view image of tracing.
--- NOTE | 2024-10-27 15:21 | DVH ---
CHEST RADIOGRAPH Indication: chf Technique: Single frontal view of the chest was obtained COMPARISON: None FINDINGS: Lines and Tubes: Median sternotomy. Left chest wall pacemaker. Lungs: Mild pulmonary vascular congestion Pleura: No effusion. No pneumothorax. Cardiomediastinal contours: Cardiomegaly Bones: Unremarkable IMPRESSION: Mild pulmonary vascular congestion.
[2024-10-27] MEDS: FUROSEMIDE 20 MG/2 ML VIAL IV ONE (16:18)
[2024-10-27] MEDS: ACCU-CHEK COMFORT CURVE STRIP VI SCH (16:33)
[2024-10-27] MEDS: InsuLIN REG 1unit/0.01ml Soln (100units/ml) SC SCH (17:07)
[2024-10-27] MEDS: HYDROcodone-ACET 5/325MG TAB PO PRN (17:10)
[2024-10-27] MEDS: NITROFURANTOIN 100 mg CAP PO SCH (21:24)
[2024-10-28 01:00] VITALS: BP 125/55; PULSE 64; RESP 16; TEMP 98.7; O2SAT 94
[2024-10-28 05:00] VITALS: BP 127/54; PULSE 65; RESP 18; TEMP 97.3; O2SAT 95
[2024-10-28 06:24] LABS: Basophils # (auto) 0 10 ^3/uL (0-0.2); Basophils % (auto) 0.8 % (0.0-2.0); Eosinophils # (auto) 0.1 10 ^3/uL (0-0.8); Eosinophils % (auto) 1.6 % (0.0-7.0); Hemoglobin 11.1 g/dL (12.2-16.2); Lymphocytes # (auto) 2.4 10 ^3/uL (0.4-5.4); Mean Corpuscular Hemoglobin 29.6 pg (28.0-32.0); Mean Corpuscular Hgb Conc. 33.5 g/dL (32.0-36.0); Mean Corpuscular Volume 88.5 fL (80.0-100.0); Monocytes # (auto) 0.3 10 ^3/uL (0-1.3); Neutrophils # (auto) 1.9 10 ^3/uL (1.6-8.6); Neutrophils % (auto) 40.6 % (37.0-80.0); Nucleated Red Blood Cells % 0.2 %; Platelet Count (auto) 170 10^3/uL (140-450); Red Blood Cells 3.73 10^6/uL (4.0-5.20); Red Cell Distribution Width 14.1 % (11.8-14.3); White Blood Cell 4.7 10^3/uL (4.4-10.8)
[2024-10-28 06:35] LABS: Alanine Aminotransferase 11 U/L (7-40); Albumin 3.7 g/dL (3.2-4.8); Alkaline Phosphatase 62 U/L (46-116); Anion Gap 7 (5-15); BUN/Creatinine Ratio 6.5 (10.0-20.0); Carbon Dioxide 26 mmol/L (20-31); Magnesium 1.8 mg/dL (1.6-2.6); Potassium 4.4 mmol/L (3.5-5.1); Sodium 141 mmol/L (136-145); Total Protein 5.9 g/dL (5.7-8.2)
[2024-10-28 06:36] LABS: Bilirubin, Total 0.4 mg/dL (0.2-1.0)
[2024-10-28 06:39] LABS: Aspartate Aminotransferase 11 U/L (13-40); Blood Urea Nitrogen 7 mg/dL (9-23); Chloride 108 mmol/L (98-107); Glucose 242 mg/dL (74-106)
[2024-10-28 08:00] VITALS: PULSE 66; RESP 16; O2SAT 100
[2024-10-28 09:00] VITALS: BP 121/66; PULSE 77; RESP 17; TEMP 98; O2SAT 96
[2024-10-28] MEDS ORDERED: cefTRIAXone 1GM/50ML D5W 50 ML IV SCH (09:00)
--- NOTE | 2024-10-28 10:33 | DVHPN2 ---
Progress Note - Dictate Date Seen: Oct 27, 2024 Medical Necessity Reason Pt with a Central, PICC or Fol: No Subjective PT WITH ABD PAIN IBS CONSTIPATION PMH: ORGANIC HD CAD CABG S/P PTCA STENT SSS S/P PPI HTN HX OF [place] DIABETES VASCULOPATHY vital signs Vital Sign Date Time Temp Pulse Resp B/P (MAP) Pulse Ox O2 Delivery O2 Flow Rate FiO2 10/28/24 09:00 98.0 77 17 121/66 (84) 96 98.0 10/27/24 20:00 Room Air* 0 21 Total Intake and Output 10/27/24 10/27/24 10/28/24 15:00 23:00 07:00 Intake Total 404 ml 800 ml Balance 404 ml 800 ml medications Current Medications Medications Dose Ordered Sig/Luz Route Start Time Stop Time Status Last Admin Dose Admin Sodium Chloride 10 ml Q8HR IV 10/26/24 22:00 10/28/24 05:34 10 ML Acetaminophen 650 mg Q6HP PRN PO 10/26/24 16:00 10/26/24 22:33 650 MG Ondansetron HCl 4 mg Q4HP PRN IV 10/26/24 16:00 10/27/24 09:45 4 MG Polyethylene Glycol 17 gm DAILY PO 10/26/24 16:00 10/26/24 17:31 17 GM Sodium Biphosphate/ Sodium Phosphate 133 ml DAILY PRN VT 10/26/24 16:00 10/26/24 22:23 133 ML Clopidogrel Bisulfate 75 mg HS PO 10/26/24 22:00 10/27/24 21:24 75 MG Cholecalciferol 2,000 unit DAILY PO 10/27/24 10:00 10/27/24 09:41 2,000 UNIT Magnesium Oxide 400 mg DAILY PO 10/27/24 10:00 10/27/24 09:40 400 MG Enoxaparin Sodium 40 mg DAILY SC 10/27/24 10:00 10/27/24 09:41 40 MG Diagnostic Test (Pha) 1 strip ACHS 10/27/24 17:00 10/28/24 06:34 1 STRIP Insulin Human Regular ACHS SC 10/27/24 17:00 10/28/24 06:34 4 UNITS Dextrose 50 ml UD PRN IV 10/27/24 14:30 Nitrofurantoin Macrocrystals 100 mg BID PO 10/27/24 22:00 Acetaminophen/ Hydrocodone Bitart 1 tab Q6HPRN PRN PO 10/27/24 16:00 10/28/24 06:34 1 TAB laboratory and microbiology Laboratory Tests 10/28/24 05:39 Test 10/28/24 05:39 Range/Units Serum Glucose 242 H 74-106 mg/dL Problem List ABD PAIN IBS CONSTIPATION PMH: ORGANIC HD CAD CABG S/P PTCA STENT SSS S/P PPI HTN HX OF [place] DIABETES VASCULOPATHY Assessment/Plan IBS TREATMENT AMBULATE Plan discussed with: Patient NAVEEN KAUR MD Oct 28, 2024 10:33
--- NOTE | 2024-10-28 10:33 | DVHPN2 ---
Progress Note - Dictate Date Seen: Oct 28, 2024 Medical Necessity Reason Pt with a Central, PICC or Fol: No Subjective PT WITH ABD PAIN IBS CONSTIPATION PMH: ORGANIC HD CAD CABG S/P PTCA STENT SSS S/P PPI HTN HX OF [place] DIABETES VASCULOPATHY vital signs Vital Sign Date Time Temp Pulse Resp B/P (MAP) Pulse Ox O2 Delivery O2 Flow Rate FiO2 10/28/24 09:00 98.0 77 17 121/66 (84) 96 98.0 10/27/24 20:00 Room Air* 0 21 Total Intake and Output 10/27/24 10/27/24 10/28/24 15:00 23:00 07:00 Intake Total 404 ml 800 ml Balance 404 ml 800 ml medications Current Medications Medications Dose Ordered Sig/Luz Route Start Time Stop Time Status Last Admin Dose Admin Sodium Chloride 10 ml Q8HR IV 10/26/24 22:00 10/28/24 05:34 10 ML Acetaminophen 650 mg Q6HP PRN PO 10/26/24 16:00 10/26/24 22:33 650 MG Ondansetron HCl 4 mg Q4HP PRN IV 10/26/24 16:00 10/27/24 09:45 4 MG Polyethylene Glycol 17 gm DAILY PO 10/26/24 16:00 10/26/24 17:31 17 GM Sodium Biphosphate/ Sodium Phosphate 133 ml DAILY PRN ID 10/26/24 16:00 10/26/24 22:23 133 ML Clopidogrel Bisulfate 75 mg HS PO 10/26/24 22:00 10/27/24 21:24 75 MG Cholecalciferol 2,000 unit DAILY PO 10/27/24 10:00 10/27/24 09:41 2,000 UNIT Magnesium Oxide 400 mg DAILY PO 10/27/24 10:00 10/27/24 09:40 400 MG Enoxaparin Sodium 40 mg DAILY SC 10/27/24 10:00 10/27/24 09:41 40 MG Diagnostic Test (Pha) 1 strip ACHS 10/27/24 17:00 10/28/24 06:34 1 STRIP Insulin Human Regular ACHS SC 10/27/24 17:00 10/28/24 06:34 4 UNITS Dextrose 50 ml UD PRN IV 10/27/24 14:30 Nitrofurantoin Macrocrystals 100 mg BID PO 10/27/24 22:00 Acetaminophen/ Hydrocodone Bitart 1 tab Q6HPRN PRN PO 10/27/24 16:00 10/28/24 06:34 1 TAB laboratory and microbiology Laboratory Tests 10/28/24 05:39 Test 10/28/24 05:39 Range/Units Serum Glucose 242 H 74-106 mg/dL Problem List ABD PAIN IBS CONSTIPATION PMH: ORGANIC HD CAD CABG S/P PTCA STENT SSS S/P PPI HTN HX OF [place] DIABETES VASCULOPATHY Assessment/Plan IBS TREATMENT AMBULATE Plan discussed with: Patient NAVEEN KAUR MD Oct 28, 2024 10:33
[2024-10-28] MEDS ORDERED: NITR-87 PO (12:51)
[2024-10-28 13:00] VITALS: BP 126/62; PULSE 86; RESP 19; TEMP 97.7; O2SAT 96
--- NOTE | 2024-10-28 13:10 | DVHDS ---
DATE OF DISCHARGE: 10/28/2024 HISTORY OF PRESENT ILLNESS: The patient is a 69-year-old lady who was admitted with complaints of abdominal pain and constipation and has a history of coronary artery disease, diabetes, hypertension, congestive heart failure, previous CABG, pacemaker. HOSPITAL COURSE: The patient had a CT of abdomen and pelvis that showed evidence of large volume of stool. The patient subsequently had bowel activity with improvement in her symptoms. She had evidence of urinary tract infection and her urine is currently growing gram-negative rods along with possible Enterococcus. The patient now wishes to go home. I have given her a copy of her urine culture preliminary report and told her to follow up with her primary care in the coming week to know the final sensitivities. The patient will therefore be discharged to resume her home medications as well as to be on Macrobid 100 mg p.o. b.i.d. for 7 days. She will follow up with Dr. Hutson in 1 week. FINAL DIAGNOSES: Therefore, * Abdominal pain with fecal impaction. * Urinary tract infection. * Diabetes mellitus. * Coronary artery disease, status post coronary artery bypass graft, status post stents. * History of pacemaker. * Obesity. * Questionable acute on chronic systolic/diastolic heart failure. Time spent in discharge planning and review of plan with the patient and nursing was 38 minutes. MD STEVEN Smyth/MILAD TID: [id number] RECEIPT: [id number]
[2024-10-28 14:05] VITALS: BP 121/66; PULSE 77; RESP 16; TEMP 98.6; O2SAT 96
== END 2024-10-28 15:55 | disposition home or self-care (01) | DRG 388 ==
LOC: ER 12:31 → EDBD 12:31 → OVERFLOW 15:50 → WEST WING 18:20
PROVIDERS: ADMIT Internal Medicine; ATTEND Internal Medicine
DX: K56.41 Fecal impaction (principal); I50.43 Acute on chronic combined systolic (congestive) and diastolic (congestive) heart failure; N39.0 Urinary tract infection, site not specified; T40.2X5A Adverse effect of other opioids, initial encounter; I11.0 Hypertensive heart disease with heart failure; E11.9 Type 2 diabetes mellitus without complications; E66.9 Obesity, unspecified; I25.10 Atherosclerotic heart disease of native coronary artery without angina pectoris; K58.9 Irritable bowel syndrome, unspecified; I25.2 Old myocardial infarction; Z79.899 Other long term (current) drug therapy; Z85.6 Personal history of leukemia; Z88.0 Allergy status to penicillin; Z95.0 Presence of cardiac pacemaker; Z95.1 Presence of aortocoronary bypass graft; Z98.61 Coronary angioplasty status; Z88.8 Allergy status to other drugs, medicaments and biological substances; Z90.49 Acquired absence of other specified parts of digestive tract; Z68.37 Body mass index [BMI] 37.0-37.9, adult
CPT/HCPCS: 36415; 71045; 74176; 80053; 81001; 82962; 83690; 83735; 85025; 87086; 87088; 87186; 93005; G0378; J1815; J2405

== ENCOUNTER → 2025-03-11 | Outpatient (CLI) | payer MEDICARE, OTHER ==
[~2025-03-11] MED LIST changes: +NITR-87 PO; +READI-CAT 2 (BARIUM SULF)(VANILLA SMOOTHIE) 450ML ONE
--- NOTE | 2025-03-11 17:38 | DVH ---
Exam: CT CT AB PEL WITH ORAL CON ONLY History: ABD PAIN Comparison Study: CT CT AB PEL WO CON-NO ORAL OR IV on DOS: 10/26/24, [facility] on DOS: 07/18/22, [facility] on DOS: 11/24/21 Technique: Multidetector spiral CT of the abdomen and pelvis was performed from lung bases to pubic symphysis. Imaging was performed without IV contrast. Axial, coronal and sagittal multiplanar reform ats were obtained from the axial data set by the technologist. Radiation dose : Abdomen/Pelvis: CTDIvol 19.28 mGy, DLP 992.33 mGy*cm. Findings: Evaluation of solid organs is limited due to lack of intravenous contrast use. Lung Bases: No acute or significant lung base finding. Normal heart size. No pleural or pericardial effusion. Liver: The liver is normal in size. No focal lesions. Gallbladder and biliary Tree: Gallbladder is surgically absent. Spleen: Unremarkable Pancreas: The pancreas is grossly normal in appearance. Adrenal Glands: Unremarkable Kidneys: Kidneys are grossly normal without calculi or hydronephrosis. Bladder: Grossly unremarkable for degree of distention. Bowel: The stomach is grossly normal in appearance. Small bowel and colon are normal in caliber and d istribution. Normal appendix is visualized in the right lower quadrant without findings of appendicit is. Ascites: Absent Lymphadenopathy: No mesenteric, retroperitoneal or periportal lymphadenopathy. Abdominal wall and Mesentery: Unremarkable. Vasculature: The visualized abdominal aorta is normal in size and caliber. There is extensive athero sclerotic calcification of the aorta and its branches. Evaluation of abdominal and pelvic vessels is limited due to lack of intravenous contrast. Pelvic Organs: Calcified uterine fibroids. Musculoskeletal: Levoscoliosis with associated multilevel degenerative disease. IMPRESSION: 1. No acute abdominal or pelvic findings. Calcified uterine fibroids. Calcified atherosclerotic disea se. Radiation optimization: All CT scans at this facility use at least one of these dose optimization mark hniques: Automated exposure control mA and/or kV adjustment per patient size (includes targeted exams where dose is matched to clinical indication) or iterative reconstruction. HS:Y
== END | disposition home or self-care (01) ==
LOC: Rad HDHVI 13:45
PROVIDERS: ATTEND Internal Medicine Cardiovascular Disease
DX: D25.9 Leiomyoma of uterus, unspecified (principal); I70.90 Unspecified atherosclerosis; R10.9 Unspecified abdominal pain; Z90.49 Acquired absence of other specified parts of digestive tract
CPT/HCPCS: 74176

== ENCOUNTER 2025-04-16 11:12 | Outpatient (CLI) | payer MEDICARE, OTHER ==
[~2025-04-16 11:12] MED LIST changes: -READI-CAT 2 (BARIUM SULF)(VANILLA SMOOTHIE) 450ML ONE
== END 2025-04-16 17:00 | disposition home or self-care (01) ==
LOC: Rad HDHVI 11:12
PROVIDERS: ATTEND Internal Medicine Cardiovascular Disease
DX: I34.0 Nonrheumatic mitral (valve) insufficiency (principal); I11.0 Hypertensive heart disease with heart failure; I50.9 Heart failure, unspecified; E78.5 Hyperlipidemia, unspecified
CPT/HCPCS: 93306

== ENCOUNTER 2025-05-27 15:34 | Outpatient (CLI) | payer MEDICARE, OTHER | END 2025-05-28 17:00 | disposition home or self-care (01) | LOC: Rad HDHVI 15:34 | PROVIDERS: ATTEND Internal Medicine Cardiovascular Disease | DX: I11.0 Hypertensive heart disease with heart failure (principal); I50.9 Heart failure, unspecified | CPT/HCPCS: 93925 ==